=== PATIENT | female | born 1950 | race Hispanic/Latino ===

== ENCOUNTER 2018-10-01 14:21 | Inpatient (IN) | payer BC, MEDICARE ==
[~2018-10-01] VITALS: Ht 165.1 cm; Wt 84.4 kg
--- NOTE | ~2018-10-01 | OR ---
[facility] [address] [place], [place] [address] Draft DATE OF OPERATION: 10/15/2018 SURGEON: Annette Mcginnis MD SENIOR NET APPLICATION DEVELOPER: Ismael Rodriguez MD PREOPERATIVE DIAGNOSIS: Cystocele, rectocele. POSTOPERATIVE DIAGNOSIS: Cystocele, rectocele. PROCEDURES PERFORMED: Cystocele and rectocele repair, sacral spinous cuff suspension, cystoscopy. ANESTHESIA: Spinal with IV sedation. ESTIMATED BLOOD LOSS: 200 mL. DRAINS: Hernandez catheter. PACKS: Vaginal. INDICATIONS AND FINDINGS: The patient is a 68-year-old female, status post prior hysterectomy with BSO for prolapse, who has been having increasing problems with vaginal pressure and was noted to have a grade 4 cystocele and grade 2 rectocele in the office. She elected to proceed with surgery. At the time of surgery, she had a grade 4 cystocele and grade 2 rectocele. The cup was found not be well supported intraoperatively. DESCRIPTION OF PROCEDURE: The patient was prepped and draped in the dorsal lithotomy position. A weighted speculum was placed as was a Hernandez catheter. Allis clamps were used along the anterior vaginal wall and the cystocele was incised over the vaginal tissue in the midline. The vaginal tissue was then from the underlying tissue with a combination of blunt PATIENT NAME: EDER HECTOR OPERATIVE REPORT DATE OF : 52 REPORT #: [id number] PHYSICIAN: ANNETTE MCGINNIS MD PCP: HAVEN NAVARRETE NP REPORT IS CONFIDENTIAL AND NOT TO BE RELEASED WITHOUT AUTHORIZATION [facility] [address] [place], [place] [address] Draft and sharp dissection. The pubovesical fascia was of very poor quality and there was a very large cystocele. Two pursestring sutures of 2-0 chromic were placed, one fairly centrally and one more laterally to reduce some of the redundancy. These were placed superficially. Following this, interrupted sutures of 0 Vicryl were used to plicate what remained on the pubic vesical fascia, which was very poor quality. Following this, the vaginal mucosa was trimmed a large amount because of the defect. The vaginal mucosa was then closed with a running suture of 2-0 Vicryl from the apex to the cuff. Following this, the Hernandez catheter was removed and cystoscopy was done. She had received IV fluorescein. The bladder was filled and there was no evidence of any defects in the bladder and no sutures seen. A 70-degree scope was needed however to see the ureteral orifices and clear fluorescein stained urine was seen to freely egress from both of the ureteral orifices. Following this, the bladder was drained and the cystoscope removed. The Hernandez catheter was replaced. The rectocele repair was then begun. A triangle of tissue removed from the perineal body and the vaginal mucosa was then undermined, incised in the midline to the apex of the vagina. The vaginal tissue was from the underlying tissue with a combination of blunt and sharp dissection. This was carried out superiorly and laterally to the ischial spines. A zero [place] suture was used with the Capio device and deployed in the midportion of the sacrospinous ligament for cuff suspension. These were placed bilaterally. Following this, the stitch was applied to what was felt to be the vaginal cuff. These were placed bilaterally and then tied bilaterally with a good elevation of the vaginal cuff. Following this, interrupted sutures of 0 Vicryl were used to plicate what remained of the perirectal fascia, but again this was of very poor quality. Following this, a rectal examination was done, which confirmed that there were no sutures compromising the rectal lumen. FloSeal was injected around the sacrospinous ligaments on each side. The vaginal mucosa was then trimmed, a small amount, as there was still good width to the vagina. There was a dog-ear at the top and the top of the incision was closed from [id number] with a running suture of 2-0 Vicryl. Following this, the remaining incision was closed longitudinally with a running suture of the 2-0 Vicryl. Additional sutures were required near the apex and the right top for control of some bleeding. Following this, the perineal body was reapproximated with interrupted sutures of 2-0 Vicryl. The fourchette was recreated with a running suture of 2-0 Vicryl. The skin of the perineum was closed with interrupted sutures of the 2-0 Vicryl placed subcuticularly. The vagina had good length and caliber. All sponge and needle counts were correct. She tolerated the procedure well and was taken to the recovery room in good condition. Annette Mcginnis MD PATIENT NAME: EDER HECTOR OPERATIVE REPORT DATE OF : 52 REPORT #: [id number] PHYSICIAN: ANNETTE MCGINNIS MD PCP: HAVEN NAVARRETE NP REPORT IS CONFIDENTIAL AND NOT TO BE RELEASED WITHOUT AUTHORIZATION [address] [address] Draft CARMEN/MODL /[id number] cc: MD Pa Houston MD Copies: ISMAEL RODRIGUEZ MD, CHRISTOPHER MD ~ PATIENT NAME: EDER HECTOR OPERATIVE REPORT DATE OF : 52 REPORT #: [id number] PHYSICIAN: ANNETTE MCGINNIS MD PCP: HAVEN NAVARRETE NP REPORT IS CONFIDENTIAL AND NOT TO BE RELEASED WITHOUT AUTHORIZATION
[~2018-10-01 14:21] MED LIST: ASPIRIN EC81 MG PO; FISH OIL 1,4001 EACH PO; LEVOTHYROXINE125 MCG PO; LIPITOR10 MG PO; LISINOPRIL10 MG PO
[2018-10-06] MEDS ORDERED: LORATADINE10 MG PO (10:52)
[2018-10-06] MEDS ORDERED: COZAAR100 MG PO (10:53)
[2018-10-15] MEDS ORDERED: MAGNESIUM400 M1 PO (05:50)
--- NOTE | 2018-10-15 07:39 | NUR ---
HEPARIN GIVEN BY ANESTHESIA PROVIDER AFTER PLACEMENT OF SPINAL ANESTHETIC
--- NOTE | 2018-10-15 09:41 | NUR ---
10/15/18 0941 [address]av[address] L 0909- PT ARRIVES TO PACU FROM OR WITH EYES CLOSED. PT HAS NASAL AIRWAY IN PLACE IN LEFT NARE WITH SIMPLE MASK 10 L O2, SATS 100%. PT KINYARWANDA SPEAKING, AROUSES WITH VERBAL STIMULI. PT DENIES PAIN OR NAUSEA AND IS UNABLE TO MOVE FEET. 0914- NASAL AIRWAY REMOVED, PT TOLERATES WELL. PT REMAINS ON 10 L 02, SATS ABOVE 94%. 0925- O2 TITRATED TO 6 LPM, SATS ABOVE 94%. POTASH FLAKER CALLED. PT CONT TO DENY PAIN OR NAUSEA AND STATES SHE IS COMFORTABLE. PT A&O X3. SPINAL LEVEL ASSESED. 0938- MASK REMOVED AND NC APPLIED 3 LPM, SATS ABOVE 94%.
--- NOTE | 2018-10-15 10:44 | NUR ---
PT ARRIVED TO OUR FLOOR FROM PACU FOR AP REPAIR BY DR. DIXON WITH SPINAL. PT HAS LOLA PAD IN PLACE WITH SCANT AMOUNT OF DARK RED BLOOD. PT HAS BUENROSTRO IN PLACE WITH NEON GREEN URINE. FLUID STARTED AT 125ML/HR AND SCD ARE IN PLACE. PT IS DROWSY BUT ABLE TO ANSWER QUESTIONS WHEN ASKED. PT HAS 1L OF O2 ON SAT AT 98% AND CPOX. PT DENIES PAIN AT THIS TIME. PT HAS NUMBNESS TO LEFT LEG, ABLE TO WIGGLE BILATERAL TOES. PT ORIENTED TO ROOM AND CALL LIGHT. CALL LIGHT WITHIN REACH.
--- NOTE | 2018-10-15 11:22 | NUR ---
ATTEMPTED TO TITRATE PT OFF O2 BUT UNSUCCESSFUL. PT BACK ON 1L AT 94% PT DECLINES PAIN AND NAUSEA AT THIS TIME. PT DROWSY BUT EAISLY AROUSABLE. CURRENTLY DRINKING WATER. PT LOLA PAD AND PACKING IN PLACE WITH NO DRAINAGE. PT HAS IRREGULAR HEARTBEAT. SCD'S AND CPOX IN PLACE. CALL LIGHT WITHIN REACH.
--- NOTE | 2018-10-15 12:17 | NUR ---
PT DAUGHTER AND AT BEDSIDE. PT DECLINES PAIN/NAUSEA AT THIS TIME. PT OPENING EYES MORE OFTEN BUT STATES SLIGHTLY DIZZY WHEN OPENS EYES. PT WATER REFILLED. PT LOLA PAD AND PACKING IN PLACE WITH SMALL AMOUNT OF DARK RED BLOOD ON LOLA PAD. PT HAS SCD'S AND BUENROSTRO CATHETER IN PLACE. DRAINED BUENROSTRO CATHETER WITH OUTPUT OF 825ML. PT DECLINES JELLO AT THIS TIME CONTINUING TO DRINK WATER. CALL LIGHT WITHIN REACH AND TV ON.
--- NOTE | 2018-10-15 13:17 | NUR ---
PT DAUGHTER AT BEDSIDE. PT ATE JELLO AND CRACKERS WITH NO DIFFICULTIES OR NAUSEA. PT REQUESTING TO EAT LUNCH CHICKEN NOODLE SOUP WITH A FRUIT PLATE. ORDERED TO KITCHEN. PT STATES THAT HER DIZZINESS IS SLOWLY GOING AWAY AND IS MORE ALERT TALKING WITH DAUGHTER. PT SCD'S AND BUENROSTRO CATHETER IN PLACE. PT CURRENTLY ON 1L OF O2 AT 98 AND LR RUNNING AT 125 ML/HR. PT LOLA PAD AND PACKING IN PLACE WITH NO ADDITIONAL DRAINAGE FROM PRIOR ASSESSMENT. PT DECLINES PAIN AT THIS TIME. CALL LIGHT WITHIN REACH.
--- NOTE | 2018-10-15 15:32 | NUR ---
PT RESTING QUIETLY IN BED TAKLING WITH . PT ATE 100% OF LUNCH WITH NO DIFFICULTIES OR NAUSEA. PT STATES "LITTLE" DIZZINESS BUT MUCH BETTER THEN PREVIOUSLY. PT LOLA PAD AND PACKING IN PLACE WITH NO ADDITIONAL DRAINAGE. 2ND ATTEMPT OF TITRATING PT OFF OXYGEN. PT SAT BETWEEN 94-97% ON RA. PT HR CONTINUES TO BE IRREGULAR, APICAL PULSE 58. PT HAS BUENROSTRO CATHETER AND SCD'S IN PLACE. REPOSITIONED PT IN BED. PT HAS NO FURTHER NEEDS/CONCERNS AT THIS TIME.
--- NOTE | 2018-10-15 17:50 | NUR ---
PT DAUGHTER AT BEDSIDE AND WILL BE STAYING THE NIGHT. PT DECLINES PAIN AT THIS TIME. PT ATE 100% OF HER DINNER WITH NO NAUSEA. PT STATES HER DIZZINESS IS GETTING BETTER SLOWLY AND DECLINES MEDICATION MD PRESCRIBED AT THIS TIME. PT WOULD LIKE TO WAIT TO STAND FOR A LITTLE WHILE LONGER. PT STATES THAT HER NUMBNESS IN THE LEFT LEG HAS COMPLETELY GONE AWAY. LOLA PAD CHANGED WITH NO ADDITIONAL DRAINAGE FROM PREVIOUS ASSESSMENT. PACKING IN PLACE. NO FURTHER NEEDS/CONCERNS AT THIS TIME.
--- NOTE | 2018-10-15 19:20 | NUR ---
CHARGE NURSE REPORT RECEIVED, PT WITH NO NEEDS.
--- NOTE | 2018-10-15 22:10 | NUR ---
had 400cc undigested food like emesis, no bile smell, medicated with zofran 4mg iv. ice chips given, no c/o pain. visiting with family
--- NOTE | 2018-10-15 23:23 | NUR ---
HAD 400CC GREENISH/UNDIGESTED FOOD EMESIS, MEDICATED WITH REGLAN 10MG IV. UP TO BR, BRUSHED OWN TEETH, BACK TO BED, TOLERATED FAIR. SCDS ON, F/C PATENT, IVF INFUSING, NO C/O PAIN. VAGINAL PACK STILL INPLACE, SCANT AMOUNT OF SS DRAINAGE
--- NOTE | 2018-10-15 23:27 | NUR ---
WITH THE HELP OF RN SHAKEEL WE GOT THE PT TO THE BATHROOM TO BRUSH HER TEETH AND BACK TO BED. SCD'S PUT BACK ON. BEDSIDE TABLE AND CALL LIGHT IN REACH. VITALS DONE AND CHARTED.
--- NOTE | 2018-10-16 02:00 | NUR ---
AWAKENS EASILY, NO C/O PAIN OR N/V. ANTIEMETICS GIVEN EARLIER EFFECTIVE. SCANT AMOUNT OF SS VAGINAL DISCHARGE. F/C PATENT, DRAINING DARK YELLOW URINE. IVF INFUSING, SCDS IN PLACE, CPOX IN PLACE. SATS 94%. NO C/O SOB OR CP. CALL LIGHT AND ICE CHIPS AT BEDSIDE
--- NOTE | 2018-10-16 04:20 | NUR ---
RESTING, NO FURTHER C/O N/V OR PAIN.F/C PATENT. FAMILY IN ROOM
--- NOTE | 2018-10-16 06:02 | NUR ---
PT WAS MEDICATED X1, GOOD PAIN RELIEF, MEDICATED X2 FOR EMESIS, EFFECTIVE. SLEPT, WALKED IN ROOM AND IN HALLWAYS THIS AM, UP TO UPPER STATION AND BACK, F/C DCD AT 0545, PROCEDURE EXPLAINED PT COOP. STILL HAS VAGINAL PACKING IN PLACE, SCANT AMOPUNT OF SS VAG DRAINAGE NOTED IN PED, CHANGED. PT DID OWN MOUTH CARE. BACK TO BED, NO C/O PAIN AT THIS TIME. AWARE OF NEED FOR URINE RESIDUAL CHECKS, STATED UNDERSTANDING. CPOX DC'D. PTS PULSE CONTINUE TO BE IRREGULAR FROM 40'S TO 100'S, PT ASYMPTOMATIC. SCDS IN PLACE, IVF INFUSING W/O PROBLEMS
--- NOTE | 2018-10-16 07:18 | NUR ---
RECIEVED REPORT FROM SAE BECKFORD. PT RESTING QUIETLY IN BED WITH DAUGHTER AT BEDSIDE.
--- NOTE | 2018-10-16 08:06 | NUR ---
CALL LIGHT ANSWERED. PATIENT IS GOING TO USE BATHROOM. PATIENT BACKS TO BED. DAUGHTER IN ROOM. CALL LIGHT WITHIN REACH. NO OTHER NEEDS AT THIS TIME
--- NOTE | 2018-10-16 08:33 | NUR ---
DISCUSSED POC WITH PATIENT AND FAMILY MEMBER WITH PVR, AND GETTING UP EVERY HOUR. PATIENT SL. SITTING UP IN BED EATING BREAKFAST, REPORTS NO PAIN AT THIS TIME. FULL BODY ASSESMENT DONE. ANSWERED QUESTIONS AND CONCERNS.
--- NOTE | 2018-10-16 09:23 | NUR ---
PATIENT RESTING IN BED. DAUGHTER IN ROOM. PATIENT GOES TO USE BATHROOM. ONE PERSON ASSISTING. GOWN CHANGED. PATIENT BACKS TO BED. VITAL SIGNS AND I&O DONE. CALL LIGHT WITHIN REACH. NO OTHER NEEDS AT THIS TIME
--- NOTE | 2018-10-16 10:00 | NUR ---
PT RESTING QUIETLY WITH DAUGHTER AT BEDSIDE. PT DECLINES ANY NAUSEA/VOMITTING/PAIN AT THIS TIME. PT LOLA PAD IN PLACE AND MD REMOVED PACKING THIS AM. PT IN PROCESS OF WORKING ON POST RESIDUAL VOIDS. ASSESSMENT COMPLETE. NO FURTHER CONCERNS/NEEDS AT THIS TIME.
--- NOTE | 2018-10-16 10:53 | NUR ---
PT AMBULATED AROUND MED SURG UNIT WITHOUT DIFFICULTIES. PT DECLINES DIZZINESS/LIGHTHEADEDNESS.
--- NOTE | 2018-10-16 11:02 | NUR ---
PATIENT SITTING UP IN CHAIR. IV WRAPPED. PATIENT GOES TO BATHROOM TO TAKE A SHOWER. PATIENT USES A WALKER. ONE PERSON ASSISTING. PATIENT USING A CLEAN GOWN AND ADULT PULL UP. PATIENT BACKS TO CHAIR. LINENS CHANGED. CALL LIGHT WITHIN REACH. NO OTHER NEEDS AT THIS TIME
[2018-10-16] MEDS ORDERED: HYDROCHLOROTHIA25 MG PO (11:13)
--- NOTE | 2018-10-16 11:35 | NUR ---
PATIENT RESTING IN BED. DAUGHTER AND VISITOR IN ROOM. IV WRAPPED. PATIENT GOES TO BATHROOM TO TAKE A SHOWER. ONE PERSON ASSISTING. PATIENT USING A CLEAN GOWN. PATIENT BACKS TO BED. CALL LIGHT WITHIN REACH. NO OTHER NEEDS AT THIS TIME
--- NOTE | 2018-10-16 11:50 | NUR ---
DR DIXON TO FLOOR TO SEE PT AND ASSESS POST VOID PROGRESS. PT STILL RETAINING URINE. ORDERS TO GET PT UP TO BATHROOM Q1 TO ATTEMPT TO VOID.
--- NOTE | 2018-10-16 13:15 | NUR ---
PATIENT AMBULATING IN THE HALLWAY WITH HER
--- NOTE | 2018-10-16 13:25 | NUR ---
PATIENT RESTING IN BED. IN ROOM. VITAL SIGNS AND I&O DONE. CALL LIGHT WITHIN REACH. NO OTHER NEEDS AT THIS TIME
--- NOTE | 2018-10-16 14:40 | NUR ---
DR DIXON TO FLOOR TO ASSESS PT. UPDATE ON PT PROGRESS AND RECENT POST VOID RESIDUALS. MD SATISFIED WITH PT PROGRESS. PLAN TO DISCHARGE.
[2018-10-16] MEDS ORDERED: IBU800 MG PO (14:55)
[2018-10-16] MEDS ORDERED: SENOKOT8.6 MG PO (14:56)
[2018-10-16] MEDS ORDERED: KONDREMUL2.5 ML/5 M PO (14:56)
--- NOTE | 2018-10-16 15:40 | NUR ---
PATIENT SITTING UP IN CHAIR. IN ROOM. FINAL VITAL SIGNS WERE OBTAINED PRIOR TO DISCHARGE FROM THE UNIT
== END 2018-10-16 15:50 | disposition home or self-care (01) | DRG 748 ==
LOC: MS 10-15 05:35 → DSVR 10-15 05:35 → MS 10-15 06:45
PROVIDERS: ADMIT Obstetrics & Gynecology
PROC: 0USG0ZZ Reposition Vagina, Open Approach (ICD-10-PCS; 2018-10-15)
PROC: 0JQC0ZZ Repair Pelvic Region Subcutaneous Tissue and Fascia, Open Approach (ICD-10-PCS; principal; 2018-10-15 06:45)
PROC: 0JQC0ZZ Repair Pelvic Region Subcutaneous Tissue and Fascia, Open Approach (ICD-10-PCS; 2018-10-15 06:45)
DX: N81.11 Cystocele, midline (principal); N81.6 Rectocele; R42 Dizziness and giddiness; R11.2 Nausea with vomiting, unspecified; I10 Essential (primary) hypertension; E66.9 Obesity, unspecified; E78.00 Pure hypercholesterolemia, unspecified; E03.9 Hypothyroidism, unspecified; K59.04 Chronic idiopathic constipation; Z68.30 Body mass index [BMI] 30.0-30.9, adult; Z79.82 Long term (current) use of aspirin; Z79.899 Other long term (current) drug therapy; Z96.652 Presence of left artificial knee joint
CPT/HCPCS: 00942; 36415; 80048; 85025; C1762; C2631; J0461; J0690; J1100; J1644; J1885; J2250; J2274; J2370; J2405; J2704; J2765; J3010; J7120